=== PATIENT | male | born 1945 ===

== ENCOUNTER 2019-07-15 07:39 | Inpatient (IN) | payer OTHER ==
[~2019-07-15] VITALS: Ht 177.8 cm; Wt 86.2 kg
[2019-07-15] MEDS ORDERED: HYZAAR 100-12.1 EACH PO (08:19)
[2019-07-15] MEDS ORDERED: LEVAQUIN500 MG PO (08:20)
[2019-07-15] MEDS ORDERED: FLAGYL500MG PO (08:20)
--- NOTE | 2019-07-15 08:20 | NUR ---
SE RECIBE PTE ALERTA Y ORIENTADO X3, QUIEN ES REFERIDO POR EL DR. CHU POR ULCERA INFECTADA EN [facility]. PTE AL MOMENTO RECIBIENDO ANTIBIOTICOS DESDE EL MIERC. SE UBICA A PTE EN AREA DE OBSERVACION PARA SER EVALUADO POR MEDICO.
--- NOTE | 2019-07-15 12:21 | NUR ---
PACIENTE ALERTA Y OREINTADO X3 ES EVALUADO POR DRA. GRACIA QUIEN ORDENA REALIZRA MUESTRAS DE LABORATORIOS Y CONSULTA CON SKIN TEAM, SE ORIENTA A PACIENTE SOBRE ORDEN MEDICA SE EJECUTA LA MISMA, PENDIENTE A QUE PACIENTE ENTREGUE MUESTRAS DE ORINA. PERSONAL DE SKIN TEAM EVALUA A PACIENTE Y REALIZA CURACION DE HERIDA.
--- NOTE | 2019-07-15 15:18 | NUR ---
SE RECIBE PTE ALERTA Y ORIENTADO X3 EN CAMA CON BARANDAS ELEVADAS. PTE EN ESPERA DE CONSULTA CON MEDICINA INTERNA.
[2019-07-25] MEDS ORDERED: BACTRIM DS TAB1 EACH PO (10:35)
== END 2019-07-25 10:49 | disposition home or self-care (01) | DRG 593 ==
LOC: ER 07:39 → MEDJ 15:29
PROVIDERS: ADMIT Internal Medicine
PROC: B54BZZZ Ultrasonography of Right Lower Extremity Veins (ICD-10-PCS; 2019-07-15)
PROC: CP1D1ZZ Planar Nuclear Medicine Imaging of Left Lower Extremity using Technetium 99m (Tc-99m) (ICD-10-PCS; principal; 2019-07-20)
DX: L97.311 Non-pressure chronic ulcer of right ankle limited to breakdown of skin (principal); L03.115 Cellulitis of right lower limb; M86.671 Other chronic osteomyelitis, right ankle and foot; I10 Essential (primary) hypertension; I87.2 Venous insufficiency (chronic) (peripheral)

== ENCOUNTER 2020-02-14 08:46 | Outpatient (CLI) | payer OTHER ==
[~2020-02-14 08:46] MED LIST: BACTRIM DS TAB1 EACH PO; FLAGYL500MG PO; HYZAAR 100-12.1 EACH PO; LEVAQUIN500 MG PO
== END 2020-02-14 08:54 | disposition home or self-care (01) ==
LOC: LAB 08:46
PROVIDERS: ATTEND Surgery
DX: Z20.828 Contact with and (suspected) exposure to other viral communicable diseases (principal)